=== PATIENT | male | born 1950 | race Caucasian/White ===

== ENCOUNTER 2019-07-06 05:56 | Day surgery (SDC) | payer BC, MEDICARE ==
[2019-07-03 10:44] VITALS: BMI 24.3
[2019-07-06] MEDS ORDERED: CEFAZOLIN 2 GM in Premix Bag 1 BAG IVPB SCH (06:00)
[2019-07-06] MEDS ORDERED: mitoMYcin 40 MG in Sodium Chloride 0.9% 40 ML I-VESIC SCH (06:00)
[2019-07-06 06:40] LABS: #Basophils 0.1 thou/uL (0.0-0.2); #Eosinphils 0.5 thou/uL (0.0-0.7); #Lymphocytes 2.1 thou/uL (1.20-3.40); #Monocytes 0.9 thou/uL (0.11-0.59); #Neutrophils 3.9 thou/uL (1.40-6.50); %Basophils 0.7 % (0.0-1.0); %Eosinophils 6.1 % (0.0-10.0); %Lymphocytes 28.4 % (21.0-51.0); %Monocytes 12.7 % (0.0-10.0); %Neutrophils 52.1 % (42.0-75.0); Hemoglobin 14.9 g/dL (14.0-18.0); Mean Corpuscular HGB CONC 32.7 g/dL (32.0-36.0); Mean Platelet Volume 7.3 fL (7.4-10.4); Platelet Count 213 thou/uL (130-400); RBC Distribution Width 12.5 % (11.5-14.5); White Blood Cell (WBC) Count 7.5 thou/uL (4.8-10.8)
[2019-07-06 06:46] LABS: INR-International Normal Ratio 0.9; PTT 28.5 SEC (22.9-36.1); Prothrombin Time 12.3 SEC (12.0-14.7)
[2019-07-06] MEDS ORDERED: Fentanyl 100 MCG/2 ML VIAL ONE (06:55)
[2019-07-06] MEDS ORDERED: Midazolam HCl 2 mg/2 ml Vial ONE (06:55)
[2019-07-06 07:00] LABS: Anion Gap 11 mmol/L (10-20); BUN (Urea Nitrogen) 18 mg/dL (8.4-25.7); Calc. Creatinine Clearance 96 mL/min (70-130); Calcium 9.5 mg/dL (7.8-10.44); Carbon Dioxide 26 mmol/L (23-31); Chloride 105 mmol/L (98-107); Estimated GFR-MDRD 82; Glucose 149 mg/dL (80-115); Potassium 4.3 mmol/L (3.5-5.1); Sodium 138 mmol/L (136-145)
[2019-07-06] MEDS ORDERED: SUGAMMADEX SODIUM 500 MG/5 ML VIAL ONE (08:11)
--- NOTE | 2019-07-06 11:16 | OP ---
DATE OF PROCEDURE: 07/06/2019 PREOPERATIVE DIAGNOSIS: Bladder tumors. POSTOPERATIVE DIAGNOSIS: Bladder tumors. PROCEDURES PERFORMED: Cystoscopy, transurethral resection of bladder tumour. ANESTHESIA: General. ESTIMATED BLOOD LOSS: Less than 50 mL. DRAINS: 18-Grenadian Thomas catheter. MEDICINES USED: 40 mg of mitomycin and 40 mL saline replaced at the end of the case. FINDINGS: There are three tumors, one was about 2 to 3 cm in size, the other two adjacent to it were about 1 cm and one less than 1 cm, all next to each other in the right wall, and these were resected in group. There was an area of abnormal mucosa, papillary changes, but not tumor growing into the bladder lumen, on the right side of the bladder wall just inside of the bladder neck. None of this involved the trigone or ureteral orifices. SPECIMENS SENT: Bladder tumor, right wall, deep and superficial, and bladder tumor inside the bladder neck on the right that has its own specimen without identifying deep or superficial. DESCRIPTION OF PROCEDURE: After obtaining written and verbal consent from the patient after receiving IV antibiotics, he was taken to the operating suite. He was placed in a supine position on the treatment table. PlexiPulses were placed on his lower extremities and turned on. He was given a general anesthetic, oral intubation, placed in the dorsal lithotomy position, sterilely prepped and draped. Cystoscopy was performed with a 22-Grenadian sheath. This was well lubricated, passed under direct vision through the male urethra into the urinary bladder with aid of a 30-degree lens, video camera, and monitor. The bladder was filled and emptied as this was examined both with 30 and the 70-degree lens. We then dilated him up to 26-Grenadian and passed a 24-Grenadian resectoscope sheath with visual obturator through the male urethra into the bladder. An PredictSpring resectoscope with the Gyrus generator and Gyrus bladder loop were used. A 30-degree lens and video camera and monitor were used. We initially resected the right papillary tumor down in the smaller ones adjacent to it, down to level with the bladder wall and evacuated that out with the Ellik. We then resected the abnormal mucosa, papillary changes just inside the right bladder neck, and then Ellik'd this out, and then we took some deep bites from initial tumor on the right wall. No other abnormalities were noted. There was good hemostasis. Thomas catheter was placed. Mitomycin-C was placed. The catheter was plugged. He was taken out of the dorsal lithotomy position, awakened, extubated, and taken by stretcher to recovery room. Job ID: [id number]
[2019-07-06] MEDS ORDERED: Glycopyrrolate 0.2 MG/ML 5 ML SYRINGE ONE (11:36)
[2019-07-06] MEDS ORDERED: Lidocaine 1% PF 5 ML VIAL ONE (11:36)
[2019-07-06] MEDS ORDERED: Rocuronium Bromide 10 MG/ML (10ML VIAL) ONE (11:36)
[2019-07-06] MEDS ORDERED: PROPOFOL 200 MG/20 ML VIAL ONE (11:36)
[2019-07-06] MEDS ORDERED: PHENYLEPHRINE-NS 100 MCG/ML 10 ML SYRINGE ONE (11:36)
== END 2019-07-06 11:28 | disposition home or self-care (01) ==
LOC: SDC 05:56
PROVIDERS: ATTEND Urology
PROC: 0TBB8ZZ Excision of Bladder, Via Natural or Artificial Opening Endoscopic (ICD-10-PCS; principal; 2019-07-06)
DX: D49.4 Neoplasm of unspecified behavior of bladder (principal); I11.0 Hypertensive heart disease with heart failure; I50.9 Heart failure, unspecified; I48.91 Unspecified atrial fibrillation; E78.5 Hyperlipidemia, unspecified; Z87.891 Personal history of nicotine dependence; Z88.2 Allergy status to sulfonamides; Z95.5 Presence of coronary angioplasty implant and graft
CPT/HCPCS: 36415; 80048; 85025; 85610; 85730; 88305; 88307; 93005; 93010; J0690; J2001; J2250; J2704; J3010; J9280

== ENCOUNTER 2019-10-16 06:09 | Outpatient (CLI) | payer BC, MEDICARE, OTHER ==
[2019-10-16 11:22] LABS: PTT 31.2 sec (22.9-36.1); Prothrombin Time 13.1 sec (12.0-14.7)
[2019-10-16 11:26] LABS: #Eosinphils 0.3 thou/uL (0.0-0.7); #Lymphocytes 1.8 thou/uL (1.20-3.40); #Monocytes 0.7 thou/uL (0.11-0.59); #Neutrophils 3.7 thou/uL (1.40-6.50); %Basophils 0.4 % (0.0-1.0); %Eosinophils 4.3 % (0.0-10.0); %Lymphocytes 27.9 % (21.0-51.0); %Monocytes 10.2 % (0.0-10.0); %Neutrophils 57.2 % (42.0-75.0); Hemoglobin 14.6 g/dL (14.0-18.0); Mean Corpuscular HGB CONC 32.9 g/dL (32.0-36.0); Mean Platelet Volume 7.4 fL (7.4-10.4); Platelet Count 227 thou/uL (130-400); RBC Distribution Width 11.6 % (11.5-14.5); Red Blood Cell (RBC) Count 4.42 mill/uL (4.70-6.10); White Blood Cell (WBC) Count 6.5 thou/uL (4.8-10.8)
[2019-10-16 12:04] LABS: Anion Gap 14 mmol/L (10-20); BUN (Urea Nitrogen) 17 mg/dL (8.4-25.7); Calc. Creatinine Clearance 0 mL/min (70-130); Calcium 9.1 mg/dL (7.8-10.44); Carbon Dioxide 24 mmol/L (23-31); Chloride 107 mmol/L (98-107); Estimated GFR-MDRD 77; Glucose 158 mg/dL (80-115); Potassium 4.2 mmol/L (3.5-5.1); Sodium 141 mmol/L (136-145)
[2019-10-17 11:32] LABS: SARS-CoV-2 MS2 Positive; SARS-CoV-2 N Gene Negative; SARS-CoV-2 S Gene Negative; SARS-CoV-2 orf1ab Negative
== END 2019-10-16 06:10 | disposition home or self-care (01) ==
LOC: LABBT 06:09
PROVIDERS: ATTEND Urology
DX: Z01.812 Encounter for preprocedural laboratory examination (principal); Z11.59 Encounter for screening for other viral diseases; Z51.81 Encounter for therapeutic drug level monitoring; C67.9 Malignant neoplasm of bladder, unspecified; Z79.899 Other long term (current) drug therapy
CPT/HCPCS: 80048; 85025; 85610; 85730; 87635; U0003

== ENCOUNTER 2019-10-19 05:40 | Day surgery (SDC) | payer BC, MEDICARE ==
[2019-10-19] MEDS ORDERED: Fentanyl 100 MCG/2 ML VIAL ONE (06:23)
[2019-10-19] MEDS ORDERED: Iopamidol 50 ML FS ONE (07:05)
[2019-10-19] MEDS ORDERED: Promethazine HCl 25 MG/ML VIAL SLOW IVP PRN (07:57)
[2019-10-19] MEDS ORDERED: Ondansetron HCl/PF 4 MG/2 ML Vial IVP PRN (07:57)
--- NOTE | 2019-10-19 08:32 | RAD ---
RETROGRADE PYELOGRAM: Nine fluoroscopic images from the OR are presented. INDICATION: Intraoperative imaging during retrograde pyelogram procedure and stent placement. FINDINGS/IMPRESSION: These images demonstrate opacification of both renal collecting structures. No hydronephrosis or rangel ling defect identified. POS: AGW
[2019-10-19] MEDS ORDERED: Ondansetron PF 4 MG/2 ML Vial ONE (11:58)
[2019-10-19] MEDS ORDERED: PROPOFOL 200 MG/20 ML VIAL ONE (11:58)
[2019-10-19] MEDS ORDERED: Lidocaine 1% PF 5 ML VIAL ONE (11:58)
--- NOTE | 2019-10-19 12:45 | OP ---
DATE OF PROCEDURE: 10/19/2019 PREOPERATIVE DIAGNOSIS: History of transitional cell carcinoma of bladder, status post maintenance BCG. POSTOPERATIVE DIAGNOSIS: History of transitional cell carcinoma of bladder, status post maintenance BCG. PROCEDURES PERFORMED: Cystoscopy, bilateral retrogrades, biopsy and fulguration of bladder. ANESTHETIC: General. ESTIMATED BLOOD LOSS: Less than 50. DRAINS: None. PATH SENT: Bladder biopsies from an old tumor site and random bladder biopsies. FINDINGS: There is no evidence of recurrent bladder tumor. All bladder site appears to have healed well. Normal retrograde study. DESCRIPTION OF PROCEDURE: Obtained written and verbal consent from the patient after receiving IV Ancef, he was taken to the operating suite. He was placed in a supine position on the treatment table. PlexiPulses were placed in his lower extremities and turned on. He was given a general anesthetic and oral obturator intubation. He was placed in dorsal lithotomy position, sterilely prepped and draped. Cystoscopy was performed with a 22-Latvian sheath. This was well lubricated, passed under direct vision through the male urethra into the bladder with aid of a 30-degree lens and video camera and monitor. The bladder was filled and emptied a number of times and examined both the 30- and the 70-degree lens with the findings above. The fluoroscopy unit was used, and he was centered over it. On the left side, we used a 5-Latvian Pollack catheter, injected about 12 mL of contrast slowly in a retrograde manner, taking images, there were no filling defects. No obstruction. It drained well. Right side was done in a similar manner. The right ureteral orifice was slightly smaller, so we used a cone-tipped catheter, used the same technique, and the findings are the same. We then used a little cold cup biopsy forceps to do some random bladder biopsies and biopsies of old tumor site, and we used a Bugbee electrode to cauterize these. There was good hemostasis. The bladder was drained. The instruments were removed. The catheter was not placed. He was taken out of the dorsal lithotomy position, awakened, extubated, and taken by jayant to recovery room. Job ID: [id number]
--- NOTE | 2019-10-22 07:45 | EKG ---
Test Reason : PREOP Blood Pressure : / mmHG Vent. 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 Dereje PAYAN ([id number]) on 10/22/2019 7:44:36 AM Referred By: NEENA Confirmed By:DR. Dereje PAYAN
== END 2019-10-19 10:43 | disposition home or self-care (01) ==
LOC: SDC 05:40
PROVIDERS: ATTEND Urology
PROC: 0TBB8ZX Excision of Bladder, Via Natural or Artificial Opening Endoscopic, Diagnostic (ICD-10-PCS; principal; 2019-10-19)
DX: C67.9 Malignant neoplasm of bladder, unspecified (principal); Z88.2 Allergy status to sulfonamides
CPT/HCPCS: 74420; 88305; 93005; 93010; J0690; J2001; J2405; J2704; J3010; Q9967

== ENCOUNTER 2022-07-24 15:43 | Inpatient (IN) | payer BC, MEDICARE ==
[2022-07-24] MEDS ORDERED: HYDROcodone/Acetaminophen 5/325 mg Tablet PO PRN (21:12)
[2022-07-24] MEDS ORDERED: Ondansetron PF 4 MG/2 ML Vial IVP PRN (21:12)
[2022-07-24] MEDS ORDERED: Ondansetron ODT 4 MG TAB PO PRN (21:12)
[2022-07-24] MEDS ORDERED: Dextrose 50% Abboject 50 ML SYRINGE SLOW IVP PRN (21:29)
[2022-07-24] MEDS ORDERED: HumaLOG 300 UNITS/3 ML VIAL SC PRN (21:29)
[2022-07-24] MEDS ORDERED: Dextrose 5% in Water 1,000 ML IV PRN (21:29)
[2022-07-24] MEDS ORDERED: Guaifenesin DM 100-10/5 ML UDCUP PO PRN (21:45)
[2022-07-24] MEDS ORDERED: Apixaban 5 MG TAB PO SCH (22:15)
[2022-07-24] MEDS ORDERED: Acetaminophen 500 MG TAB PO SCH (22:15)
[2022-07-24] MEDS ORDERED: Dextrose 5%-Lactated Ringers 1,000 ML IV SCH (22:30)
[2022-07-24] MEDS: cefTRIAXone\\ROCEPHIN 2 GM in Sodium Chloride 0.9% 100 ML IVPB SCH (23:15)
[2022-07-25 05:23] LABS: Hemoglobin 11.9 g/dL (14.0-18.0); Mean Corpuscular HGB CONC 31.1 g/dL (32.0-36.0); Mean Corpuscular Hemoglobin 31.1 pg (27.0-31.0); Mean Platelet Volume 7.3 fL (7.4-10.4); Platelet Count 322 10x3/uL (130-400); RBC Distribution Width 11.8 % (11.5-14.5); Red Blood Cell (RBC) Count 3.81 mill/uL (4.70-6.10); White Blood Cell (WBC) Count 33.7 10x3/uL (4.8-10.8)
[2022-07-25 05:25] LABS: Anion Gap 13 mmol/L (10-20); BUN (Urea Nitrogen) 22 mg/dL (8.4-25.7); Calc. Creatinine Clearance 82 mL/min (70-130); Calcium 8.9 mg/dL (7.8-10.44); Carbon Dioxide 25 mmol/L (23-31); Chloride 98 mmol/L (98-107); Estimated GFR 85; Glucose 180 mg/dL (83-110); Potassium 4.1 mmol/L (3.5-5.1); Sodium 132 mmol/L (136-145)
[2022-07-25] MEDS ORDERED: Lactated Ringer's 1,000 ML IV SCH (06:15)
[2022-07-25 06:29] LABS: Band 8 % (5-11); Lymphocytes 4 % (21-51); MDiff Complete? YES; Macrocytosis SLIGHT = 6-15 cells (100X) (0-5/hpf); Monocytes 4 % (0-10); Neutrophil 83 % (42-75); Platelet Morphology Comment Appears Adequate; Polychromasia SLIGHT = 2-3 cells (100X) (0-2/hpf); Reactive Lymphocytes 1 % (0-10)
[2022-07-25] MEDS: Azithromycin 500 MG in Sodium Chloride 0.9% 250 ML 250 ML IVPB SCH (06:30)
[2022-07-25] MEDS: Lactated Ringer's 1,000 ML IV SCH ×3 (11:46→17:53)
[2022-07-25] MEDS ORDERED: Bupivacaine HCl 0.5%/Epinephrine 1:200,000/PF 30 ml Vial ONE (12:04)
[2022-07-25] MEDS ORDERED: Lidocaine 1% PF 5 ML VIAL ONE ×2 (12:26→13:46)
[2022-07-25] MEDS ORDERED: fentaNYL 50 mcg/mL 1 mL Vial ONE ×2 (12:52)
[2022-07-25] MEDS ORDERED: metroNIDAZOLE 500 MG/100 ML BAG ONE (13:32)
[2022-07-25] MEDS ORDERED: ePHEDrine Sulfate 50 MG/10 ML VIAL ONE (13:46)
[2022-07-25] MEDS ORDERED: Succinylcholine Chloride 100 MG/5 ML SYRINGE FS ONE (13:46)
[2022-07-25] MEDS ORDERED: Dexamethasone 20 MG/5 ML VIAL ONE (13:46)
[2022-07-25] MEDS ORDERED: Rocuronium Bromide 10 MG/ML (10ML VIAL) ONE (13:46)
[2022-07-25] MEDS ORDERED: Ondansetron PF 4 MG/2 ML Vial ONE (13:46)
[2022-07-25] MEDS: metroNIDAZOLE 500 MG in Premix Bag 1 BAG IVPB SCH ×2 (16:22→22:04)
[2022-07-25] MEDS ORDERED: Propofol 1,000 MG/100 ML VIAL IV ONE (16:47)
[2022-07-25 16:56] LABS: Actual Bicarbonate (HCO3a) 24.7 mEq/L (22-28); Base Excess (BEa) -2.6 mEq/L (-2.0 to +3.0); CO2 Tension 53.7 mmHg (35.0-45.0); Calcium, Ionized (arterial) 1.14 mmol/L (1.12-1.30); Carboxyhemoglobin (COHb) 0.6 gm% (0.0-3.0); Hemoglobin (Hb) 12.8 g/dL (14.0-18.0); O2 Tension (PaO2), arterial 83.8 mmHg (> 70.0); pH, Arterial 7.28 (7.35-7.45)
[2022-07-25 16:57] LABS: ALV-art Gradient 205.575 mmHg (0-20); Puncture Site Arterial Line
[2022-07-25] MEDS ORDERED: Ipratropium/Albuterol 3 ML NEB NEB PRN (17:38)
[2022-07-25] MEDS ORDERED: Phenylephrine 40 MG in Sodium Chloride 0.9% 250 ML 250 ML IVPB PRN (17:38)
[2022-07-25] MEDS ORDERED: fentaNYL 50 mcg/mL 1 mL Vial SLOW IVP PRN ×2 (17:50→17:51)
[2022-07-25] MEDS ORDERED: Propofol 1,000 MG/100 ML VIAL IV PRN (19:00)
[2022-07-25] MEDS ORDERED: Morphine 2 MG/ML VIAL SLOW IVP PRN (19:00)
[2022-07-25] MEDS ORDERED: Fentanyl BOLUS 250 ML IVPB PRN (19:00)
[2022-07-25] MEDS ORDERED: Propofol BOLUS 1,000 MG/100 ML VIAL IV PRN (19:00)
[2022-07-25] MEDS ORDERED: Fentanyl CADD 100 ML IV SCH (19:00)
[2022-07-25] MEDS ORDERED: Lorazepam 2 MG/ML VIAL SLOW IVP PRN (19:00)
[2022-07-25] MEDS ORDERED: DISCONTINUE PREVIOUS NARCOTIC PAIN MEDICATIONS AND BENZODIAZEPINES FS SCH (19:00)
[2022-07-25] MEDS ORDERED: Fentanyl CADD 100 ML ONE (19:25)
[2022-07-25] MEDS ORDERED: Electrolyte Replacement Protocol 1 EACH FS SCH (19:30)
[2022-07-25] MEDS: Carvedilol 6.25 MG TAB PO SCH (20:29)
[2022-07-25] MEDS: Rosuvastatin 10 MG TAB PO SCH (20:29)
[2022-07-25] MEDS ORDERED: Phenylephrine 40 MG/NS 250 ML 40 MG in Premix Bag 1 BAG IVPB PRN (20:30)
[2022-07-25] MEDS: Sotalol HCl 80 MG TAB PO SCH (20:34)
[2022-07-25 21:13] LABS: Bacteria/HPF None Seen HPF (None Seen); Bilirubin Negative (Negative); Blood, Urine Trace (Negative); CAUTI Indications for Culture Fever or rigors; Clarity Turbid (Clear); Glucose, Urine (Dipstick) Normal (Negative); Ketone, Urine 10 mg/dL (Negative); Leukocyte Negative Leu/uL (Negative); Nitrite Negative (Negative); Protein, Urine (Dipstick) 50 mg/dL (Neg-Trace); Specific Gravity, Urine 1.032 (1.002-1.036); Squamous Epithelial 0-3 HPF (0-3); Urobilinogen Normal mg/dL (Less than 2); WBC/HPF 0-3 HPF (0-3)
[2022-07-25 21:14] LABS: Urine Culture Reflex No No
[2022-07-25] MEDS: cefTRIAXone\\ROCEPHIN 2 GM in Sodium Chloride 0.9% 100 ML IVPB SCH (22:04)
[2022-07-25] MEDS: HumaLOG 300 UNITS/3 ML VIAL SC PRN (23:42)
[2022-07-26 04:37] LABS: Hemoglobin 11.1 g/dL (14.0-18.0); Mean Corpuscular HGB CONC 31.6 g/dL (32.0-36.0); Mean Corpuscular Hemoglobin 31.3 pg (27.0-31.0); Mean Corpuscular Volume 99.2 fl (78.0-98.0); Mean Platelet Volume 6.9 fL (7.4-10.4); Platelet Count 353 10x3/uL (130-400); RBC Distribution Width 11.9 % (11.5-14.5); Red Blood Cell (RBC) Count 3.55 mill/uL (4.70-6.10); White Blood Cell (WBC) Count 30.7 10x3/uL (4.8-10.8)
[2022-07-26 04:57] LABS: Anion Gap 12 mmol/L (10-20); BUN (Urea Nitrogen) 18 mg/dL (8.4-25.7); Calc. Creatinine Clearance 127 mL/min (70-130); Calcium 8.3 mg/dL (7.8-10.44); Carbon Dioxide 23 mmol/L (23-31); Chloride 103 mmol/L (98-107); Estimated GFR 102; Glucose 158 mg/dL (83-110); Magnesium 1.8 mg/dL (1.6-2.6); Potassium 3.7 mmol/L (3.5-5.1); Sodium 134 mmol/L (136-145)
[2022-07-26] MEDS: Azithromycin 500 MG in Sodium Chloride 0.9% 250 ML 250 ML IVPB SCH (05:03)
[2022-07-26] MEDS: metroNIDAZOLE 500 MG in Premix Bag 1 BAG IVPB SCH ×3 (05:04→21:02)
[2022-07-26] MEDS: Lactated Ringer's 1,000 ML IV SCH (05:06)
[2022-07-26 05:22] LABS: Band 8 % (5-11); Lymphocytes 3 % (21-51); MDiff Complete? YES; Monocytes 1 % (0-10); Neutrophil 88 % (42-75)
[2022-07-26] MEDS ORDERED: Magnesium 2 GM/50 ML(in water) 2 GM in Premix Bag 1 BAG IVPB SCH (06:45)
[2022-07-26] MEDS: HumaLOG 300 UNITS/3 ML VIAL SC PRN ×2 (06:54→13:07)
[2022-07-26] MEDS ORDERED: FLU VACC QS2022-23(65YR UP)/PF 240 MCG/0.7 ML SYRINGE IM ONE (09:00)
[2022-07-26] MEDS: Sotalol HCl 80 MG TAB PO SCH ×2 (10:08→21:01)
[2022-07-26] MEDS: Polyethylene Glycol 3350 17 GM Packet PO SCH (10:09)
[2022-07-26] MEDS: Carvedilol 6.25 MG TAB PO SCH (10:10)
[2022-07-26] MEDS ORDERED: fentaNYL 50 mcg/mL 1 mL Vial SLOW IVP PRN (19:51)
[2022-07-26] MEDS ORDERED: Non-Formulary Item 1 EACH (Cinnamon Bark [Cinnamon] 500 MG Capsule) PO SCH (21:00)
[2022-07-26] MEDS: Rosuvastatin 10 MG TAB PO SCH (21:01)
[2022-07-26] MEDS: Alogliptin 6.25 MG TAB PO SCH (21:02)
[2022-07-26] MEDS: metFORMIN 500 MG TAB PO SCH (21:02)
[2022-07-26] MEDS: cefTRIAXone\\ROCEPHIN 2 GM in Sodium Chloride 0.9% 100 ML IVPB SCH (21:03)
[2022-07-27 04:12] LABS: Anion Gap 11 mmol/L (10-20); BUN (Urea Nitrogen) 21 mg/dL (8.4-25.7); CRP (Inflammatory) 22.01 mg/dL (= or < 0.5); Calc. Creatinine Clearance 116 mL/min (70-130); Calcium 8.3 mg/dL (7.8-10.44); Carbon Dioxide 28 mmol/L (23-31); Chloride 101 mmol/L (98-107); Estimated GFR 99; Glucose 137 mg/dL (83-110); Potassium 3.9 mmol/L (3.5-5.1); Sodium 136 mmol/L (136-145)
[2022-07-27 04:22] LABS: Band 3 % (5-11); Hemoglobin 11.4 g/dL (14.0-18.0); Hypochromia SLIGHT = 6-15 cells (100X) (0-5/hpf); Lymphocytes 4 % (21-51); MDiff Complete? YES; Macrocytosis SLIGHT = 6-15 cells (100X) (0-5/hpf); Mean Corpuscular HGB CONC 31.8 g/dL (32.0-36.0); Mean Corpuscular Hemoglobin 31.5 pg (27.0-31.0); Mean Corpuscular Volume 99.1 fl (78.0-98.0); Mean Platelet Volume 6.7 fL (7.4-10.4); Monocytes 4 % (0-10); Neutrophil 89 % (42-75); Platelet Count 392 10x3/uL (130-400); Platelet Morphology Comment Appears Adequate; Polychromasia SLIGHT = 2-3 cells (100X) (0-2/hpf); Red Blood Cell (RBC) Count 3.62 mill/uL (4.70-6.10); Vacuoles SLIGHT; White Blood Cell (WBC) Count 26.9 10x3/uL (4.8-10.8)
[2022-07-27] MEDS: metroNIDAZOLE 500 MG in Premix Bag 1 BAG IVPB SCH ×3 (05:42→22:08)
[2022-07-27] MEDS: Azithromycin 500 MG in Sodium Chloride 0.9% 250 ML 250 ML IVPB SCH (05:43)
[2022-07-27] MEDS: Carvedilol 6.25 MG TAB PO SCH ×2 (09:00→17:19)
[2022-07-27] MEDS: Multivit, Therapeutic 1 TAB PO SCH (09:00)
[2022-07-27] MEDS: metFORMIN 500 MG TAB PO SCH ×2 (09:01→20:08)
[2022-07-27] MEDS: Spironolactone 25 MG TAB PO SCH (09:01)
[2022-07-27] MEDS: Polyethylene Glycol 3350 17 GM Packet PO SCH (09:01)
[2022-07-27] MEDS: Cholecalciferol 1,000 UNITS (25 MCG) TAB PO SCH (09:07)
[2022-07-27] MEDS: Sotalol HCl 80 MG TAB PO SCH ×2 (09:07→20:07)
[2022-07-27] MEDS: Acetaminophen 325 MG TAB PO PRN ×2 (09:23→22:08)
[2022-07-27] MEDS: Alogliptin 6.25 MG TAB PO SCH ×2 (09:29→20:08)
[2022-07-27] MEDS: HumaLOG 300 UNITS/3 ML VIAL SC PRN (11:04)
[2022-07-27] MEDS: traMADol HCl 50 MG TAB PO PRN ×2 (14:43→19:43)
[2022-07-27] MEDS: Rosuvastatin 10 MG TAB PO SCH (20:08)
[2022-07-27] MEDS: cefTRIAXone\\ROCEPHIN 2 GM in Sodium Chloride 0.9% 100 ML IVPB SCH (22:09)
[2022-07-28] MEDS: metroNIDAZOLE 500 MG in Premix Bag 1 BAG IVPB SCH ×3 (05:29→22:47)
[2022-07-28] MEDS: Azithromycin 500 MG in Sodium Chloride 0.9% 250 ML 250 ML IVPB SCH (05:29)
[2022-07-28 05:37] LABS: Anion Gap 12 mmol/L (10-20); BUN (Urea Nitrogen) 17 mg/dL (8.4-25.7); Calc. Creatinine Clearance 127 mL/min (70-130); Calcium 8.2 mg/dL (7.8-10.44); Carbon Dioxide 24 mmol/L (23-31); Chloride 103 mmol/L (98-107); Estimated GFR 102; Glucose 131 mg/dL (83-110); Potassium 4.1 mmol/L (3.5-5.1); Sodium 135 mmol/L (136-145)
[2022-07-28] MEDS: traMADol HCl 50 MG TAB PO PRN ×2 (05:47→20:00)
[2022-07-28 06:06] LABS: Band 4 % (5-11); Lymphocytes 6 % (21-51); MDiff Complete? YES; Mean Corpuscular HGB CONC 32.7 g/dL (32.0-36.0); Mean Corpuscular Volume 97.8 fl (78.0-98.0); Mean Platelet Volume 6.7 fL (7.4-10.4); Monocytes 4 % (0-10); Neutrophil 86 % (42-75); Platelet Count 431 10x3/uL (130-400); Platelet Morphology Comment Appears Increased; RBC Morphology Normal; Red Blood Cell (RBC) Count 3.77 mill/uL (4.70-6.10); White Blood Cell (WBC) Count 22.6 10x3/uL (4.8-10.8)
[2022-07-28] MEDS: Alogliptin 6.25 MG TAB PO SCH ×2 (09:21→20:00)
[2022-07-28] MEDS: Cholecalciferol 1,000 UNITS (25 MCG) TAB PO SCH (09:21)
[2022-07-28] MEDS: Sotalol HCl 80 MG TAB PO SCH ×2 (09:22→20:00)
[2022-07-28] MEDS: Multivit, Therapeutic 1 TAB PO SCH (09:22)
[2022-07-28] MEDS: Spironolactone 25 MG TAB PO SCH (09:22)
[2022-07-28] MEDS: Carvedilol 6.25 MG TAB PO SCH ×2 (09:22→17:16)
[2022-07-28] MEDS: metFORMIN 500 MG TAB PO SCH ×2 (09:22→20:00)
[2022-07-28] MEDS: Polyethylene Glycol 3350 17 GM Packet PO SCH (09:23)
[2022-07-28] MEDS: Rosuvastatin 10 MG TAB PO SCH (20:01)
[2022-07-28] MEDS: cefTRIAXone\\ROCEPHIN 2 GM in Sodium Chloride 0.9% 100 ML IVPB SCH (22:47)
[2022-07-29] MEDS: Azithromycin 500 MG in Sodium Chloride 0.9% 250 ML 250 ML IVPB SCH (05:56)
[2022-07-29] MEDS: metroNIDAZOLE 500 MG in Premix Bag 1 BAG IVPB SCH ×3 (05:56→21:23)
[2022-07-29 07:33] LABS: Hemoglobin 12.7 g/dL (14.0-18.0); Mean Corpuscular HGB CONC 33.3 g/dL (32.0-36.0); Mean Corpuscular Hemoglobin 32.5 pg (27.0-31.0); Mean Corpuscular Volume 97.8 fl (78.0-98.0); Mean Platelet Volume 6.4 fL (7.4-10.4); Platelet Count 528 10x3/uL (130-400); RBC Distribution Width 12.2 % (11.5-14.5); White Blood Cell (WBC) Count 25.2 10x3/uL (4.8-10.8)
[2022-07-29 07:48] LABS: Anion Gap 13 mmol/L (10-20); BUN (Urea Nitrogen) 14 mg/dL (8.4-25.7); Calc. Creatinine Clearance 125 mL/min (70-130); Calcium 8.2 mg/dL (7.8-10.44); Carbon Dioxide 21 mmol/L (23-31); Chloride 104 mmol/L (98-107); Estimated GFR 101; Glucose 153 mg/dL (83-110); Potassium 3.7 mmol/L (3.5-5.1); Sodium 134 mmol/L (136-145)
[2022-07-29] MEDS: Multivit, Therapeutic 1 TAB PO SCH (08:42)
[2022-07-29] MEDS: Sotalol HCl 80 MG TAB PO SCH ×2 (08:42→21:18)
[2022-07-29] MEDS: Polyethylene Glycol 3350 17 GM Packet PO SCH (08:42)
[2022-07-29] MEDS: Alogliptin 6.25 MG TAB PO SCH ×2 (08:43→21:17)
[2022-07-29] MEDS: Cholecalciferol 1,000 UNITS (25 MCG) TAB PO SCH (08:44)
[2022-07-29] MEDS: Carvedilol 6.25 MG TAB PO SCH ×2 (08:44→16:20)
[2022-07-29] MEDS: metFORMIN 500 MG TAB PO SCH ×2 (08:44→21:18)
[2022-07-29] MEDS: Acetaminophen 325 MG TAB PO PRN (08:46)
[2022-07-29 10:52] LABS: Lymphocytes 7 % (21-51); MDiff Complete? YES; Monocytes 12 % (0-10); Neutrophil 81 % (42-75); Platelet Morphology Comment Appears Increased
[2022-07-29] MEDS: Rosuvastatin 10 MG TAB PO SCH (21:18)
[2022-07-29] MEDS: cefTRIAXone\\ROCEPHIN 2 GM in Sodium Chloride 0.9% 100 ML IVPB SCH (21:23)
[2022-07-30 05:24] LABS: Anion Gap 13 mmol/L (10-20); BUN (Urea Nitrogen) 13 mg/dL (8.4-25.7); Calc. Creatinine Clearance 127 mL/min (70-130); Calcium 8.1 mg/dL (7.8-10.44); Carbon Dioxide 22 mmol/L (23-31); Chloride 103 mmol/L (98-107); Estimated GFR 102; Glucose 150 mg/dL (83-110); Potassium 3.6 mmol/L (3.5-5.1); Sodium 134 mmol/L (136-145)
[2022-07-30] MEDS: Azithromycin 500 MG in Sodium Chloride 0.9% 250 ML 250 ML IVPB SCH (05:28)
[2022-07-30] MEDS: metroNIDAZOLE 500 MG in Premix Bag 1 BAG IVPB SCH (05:29)
[2022-07-30 06:00] LABS: Hemoglobin 11.6 g/dL (14.0-18.0); Hypochromia SLIGHT = 6-15 cells (100X) (0-5/hpf); Lymphocytes 5 % (21-51); MDiff Complete? YES; Mean Corpuscular HGB CONC 31.1 g/dL (32.0-36.0); Mean Corpuscular Hemoglobin 30.5 pg (27.0-31.0); Mean Corpuscular Volume 97.9 fl (78.0-98.0); Mean Platelet Volume 6.5 fL (7.4-10.4); Metamyelocyte 1 % (0-0); Monocytes 11 % (0-10); Neutrophil 83 % (42-75); Platelet Count 630 10x3/uL (130-400); Platelet Morphology Comment Appears Increased; RBC Distribution Width 12.3 % (11.5-14.5); Red Blood Cell (RBC) Count 3.83 mill/uL (4.70-6.10); White Blood Cell (WBC) Count 22.9 10x3/uL (4.8-10.8)
[2022-07-30] MEDS: metFORMIN 500 MG TAB PO SCH ×2 (07:58→20:18)
[2022-07-30] MEDS: Acetaminophen 325 MG TAB PO PRN (08:00)
[2022-07-30] MEDS: Alogliptin 6.25 MG TAB PO SCH ×2 (08:01→20:28)
[2022-07-30] MEDS: Sotalol HCl 80 MG TAB PO SCH ×2 (08:01→20:18)
[2022-07-30] MEDS: Carvedilol 6.25 MG TAB PO SCH ×2 (08:02→17:48)
[2022-07-30] MEDS: Cholecalciferol 1,000 UNITS (25 MCG) TAB PO SCH (08:02)
[2022-07-30] MEDS: Multivit, Therapeutic 1 TAB PO SCH (08:02)
[2022-07-30] MEDS: Polyethylene Glycol 3350 17 GM Packet PO SCH (08:04)
[2022-07-30] MEDS: Cefdinir 300 MG CAP PO SCH ×2 (09:50→20:18)
[2022-07-30] MEDS ORDERED: metroNIDAZOLE 500 MG TAB PO SCH (15:00)
[2022-07-30] MEDS: Rosuvastatin 10 MG TAB PO SCH (20:18)
[2022-07-31] MEDS: Acetaminophen 325 MG TAB PO PRN ×2 (01:35→21:51)
[2022-07-31 05:01] LABS: Anion Gap 10 mmol/L (10-20); BUN (Urea Nitrogen) 10 mg/dL (8.4-25.7); Calc. Creatinine Clearance 134 mL/min (70-130); Calcium 8.1 mg/dL (7.8-10.44); Carbon Dioxide 26 mmol/L (23-31); Chloride 105 mmol/L (98-107); Estimated GFR 102; Glucose 150 mg/dL (83-110); Potassium 3.4 mmol/L (3.5-5.1); Sodium 138 mmol/L (136-145)
[2022-07-31 05:27] LABS: Eosinophils 1 % (0-10); Hemoglobin 11.3 g/dL (14.0-18.0); Hypochromia SLIGHT = 6-15 cells (100X) (0-5/hpf); Lymphocytes 6 % (21-51); MDiff Complete? YES; Mean Corpuscular HGB CONC 32.5 g/dL (32.0-36.0); Mean Corpuscular Hemoglobin 31.8 pg (27.0-31.0); Mean Corpuscular Volume 97.6 fl (78.0-98.0); Mean Platelet Volume 6.4 fL (7.4-10.4); Monocytes 4 % (0-10); Neutrophil 87 % (42-75); Platelet Count 616 10x3/uL (130-400); Platelet Morphology Comment Appears Increased; RBC Distribution Width 12.6 % (11.5-14.5); Reactive Lymphocytes 2 % (0-10); Red Blood Cell (RBC) Count 3.57 mill/uL (4.70-6.10)
[2022-07-31] MEDS ORDERED: Potassium Chloride 20 MEQ TAB PO SCH (08:00)
[2022-07-31] MEDS: Alogliptin 6.25 MG TAB PO SCH ×2 (08:17→22:07)
[2022-07-31] MEDS: Cholecalciferol 1,000 UNITS (25 MCG) TAB PO SCH (08:18)
[2022-07-31] MEDS: Cefdinir 300 MG CAP PO SCH ×2 (08:18→21:49)
[2022-07-31] MEDS: Multivit, Therapeutic 1 TAB PO SCH (08:18)
[2022-07-31] MEDS: Carvedilol 6.25 MG TAB PO SCH ×2 (08:18→16:17)
[2022-07-31] MEDS: metFORMIN 500 MG TAB PO SCH ×2 (08:18→21:50)
[2022-07-31] MEDS: Sotalol HCl 80 MG TAB PO SCH ×2 (08:18→21:50)
[2022-07-31] MEDS: Polyethylene Glycol 3350 17 GM Packet PO SCH (08:19)
[2022-07-31] MEDS: Non-Formulary Item 1 EACH (Omega-3 Acid Ethyl Esters [Lovaza] 1 GM Capsule) PO SCH ×3 (15:21→15:25)
[2022-07-31] MEDS: Rosuvastatin 10 MG TAB PO SCH (21:50)
[2022-08-01 04:56] LABS: #Eosinphils 0.5 thou/uL (0.0-0.7); #Lymphocytes 1.8 thou/uL (1.20-3.40); #Neutrophils 13.8 thou/uL (1.40-6.50); %Eosinophils 2.8 % (0.0-10.0); %Lymphocytes 10.1 % (21.0-51.0); %Neutrophils 76.2 % (42.0-75.0); Hemoglobin 11.8 g/dL (14.0-18.0); Mean Corpuscular HGB CONC 30.9 g/dL (32.0-36.0); Mean Corpuscular Hemoglobin 30.2 pg (27.0-31.0); Mean Corpuscular Volume 97.7 fl (78.0-98.0); Mean Platelet Volume 6.2 fL (7.4-10.4); Platelet Count 703 10x3/uL (130-400); RBC Distribution Width 12.5 % (11.5-14.5); Red Blood Cell (RBC) Count 3.92 mill/uL (4.70-6.10); White Blood Cell (WBC) Count 18.2 10x3/uL (4.8-10.8)
[2022-08-01 05:18] LABS: Anion Gap 13 mmol/L (10-20); BUN (Urea Nitrogen) 9 mg/dL (8.4-25.7); Calc. Creatinine Clearance 130 mL/min (70-130); Calcium 8.2 mg/dL (7.8-10.44); Carbon Dioxide 22 mmol/L (23-31); Chloride 105 mmol/L (98-107); Estimated GFR 101; Glucose 159 mg/dL (83-110); Potassium 3.8 mmol/L (3.5-5.1); Sodium 136 mmol/L (136-145)
[2022-08-01 07:10] LABS: Magnesium 1.7 mg/dL (1.6-2.6)
[2022-08-01 07:40] LABS: Troponin I Less than 0.010 ng/mL (< 0.028)
[2022-08-01] MEDS ORDERED: Magnesium 2 GM/50 ML(in water) 2 GM in Premix Bag 1 BAG IVPB SCH (08:00)
[2022-08-01] MEDS: Polyethylene Glycol 3350 17 GM Packet PO SCH (09:03)
[2022-08-01] MEDS: Multivit, Therapeutic 1 TAB PO SCH (09:03)
[2022-08-01] MEDS: Carvedilol 6.25 MG TAB PO SCH ×2 (09:03→16:15)
[2022-08-01] MEDS: Cefdinir 300 MG CAP PO SCH ×2 (09:03→22:07)
[2022-08-01] MEDS: metFORMIN 500 MG TAB PO SCH ×2 (09:03→22:07)
[2022-08-01] MEDS: Cholecalciferol 1,000 UNITS (25 MCG) TAB PO SCH (09:04)
[2022-08-01] MEDS: Sotalol HCl 80 MG TAB PO SCH ×2 (09:04→22:08)
[2022-08-01] MEDS: Alogliptin 6.25 MG TAB PO SCH ×2 (11:35→22:07)
[2022-08-01] MEDS ORDERED: Amiodarone 200 MG TAB PO SCH (21:00)
[2022-08-01] MEDS: Rosuvastatin 10 MG TAB PO SCH (22:09)
[2022-08-02 05:52] VITALS: BMI 23.3
[2022-08-02 08:26] LABS: #Eosinphils 0.2 thou/uL (0.0-0.7); #Lymphocytes 1.7 thou/uL (1.20-3.40); #Monocytes 1.8 thou/uL (0.11-0.59); #Neutrophils 14.9 thou/uL (1.40-6.50); %Basophils 0.1 % (0.0-1.0); %Eosinophils 0.9 % (0.0-10.0); %Monocytes 9.7 % (0.0-10.0); %Neutrophils 80.4 % (42.0-75.0); Hemoglobin 11.9 g/dL (14.0-18.0); Mean Corpuscular HGB CONC 33.1 g/dL (32.0-36.0); Mean Corpuscular Volume 96.9 fl (78.0-98.0); Mean Platelet Volume 6.2 fL (7.4-10.4); Platelet Count 675 10x3/uL (130-400); RBC Distribution Width 12.7 % (11.5-14.5); White Blood Cell (WBC) Count 18.5 10x3/uL (4.8-10.8)
[2022-08-02 08:45] LABS: Anion Gap 10 mmol/L (10-20); BUN (Urea Nitrogen) 9 mg/dL (8.4-25.7); Calc. Creatinine Clearance 123 mL/min (70-130); Calcium 8.2 mg/dL (7.8-10.44); Carbon Dioxide 25 mmol/L (23-31); Chloride 104 mmol/L (98-107); Estimated GFR 100; Glucose 172 mg/dL (83-110); Potassium 3.8 mmol/L (3.5-5.1); Sodium 135 mmol/L (136-145)
[2022-08-02] MEDS: metFORMIN 500 MG TAB PO SCH (09:49)
[2022-08-02] MEDS: Cholecalciferol 1,000 UNITS (25 MCG) TAB PO SCH (09:49)
[2022-08-02] MEDS: Sotalol HCl 80 MG TAB PO SCH (09:49)
[2022-08-02] MEDS: Carvedilol 6.25 MG TAB PO SCH (09:50)
[2022-08-02] MEDS: Cefdinir 300 MG CAP PO SCH (09:50)
[2022-08-02] MEDS: Multivit, Therapeutic 1 TAB PO SCH (09:50)
[2022-08-02] MEDS: Alogliptin 6.25 MG TAB PO SCH (09:50)
[2022-08-02] MEDS: Polyethylene Glycol 3350 17 GM Packet PO SCH (09:51)
[2022-08-02 15:52] VITALS: BP 113/62; TEMP 98.5
== END 2022-08-02 16:00 | disposition home or self-care (01) | DRG 853 ==
LOC: 2NO 15:43 → CCU 07-25 16:20 → 2NO 07-27 19:24
PROVIDERS: ADMIT Internal Medicine; ATTEND Internal Medicine
PROC: 3E03329 Introduction of Other Anti-infective into Peripheral Vein, Percutaneous Approach (ICD-10-PCS; 2022-07-24)
PROC: 0BN Respiratory System, Release (ICD-10-PCS; principal; 2022-07-25)
DX: A41.9 Sepsis, unspecified organism (principal); J18.9 Pneumonia, unspecified organism; J96.01 Acute respiratory failure with hypoxia; J86.9 Pyothorax without fistula; I50.22 Chronic systolic (congestive) heart failure; I47.20 Ventricular tachycardia, unspecified; I48.3 Typical atrial flutter; I11.0 Hypertensive heart disease with heart failure; Z20.822 Contact with and (suspected) exposure to COVID-19; I48.0 Paroxysmal atrial fibrillation; E11.9 Type 2 diabetes mellitus without complications; R65.20 Severe sepsis without septic shock; E78.5 Hyperlipidemia, unspecified; D69.6 Thrombocytopenia, unspecified; I25.5 Ischemic cardiomyopathy; Z88.2 Allergy status to sulfonamides; Z79.899 Other long term (current) drug therapy; I25.2 Old myocardial infarction; Z95.810 Presence of automatic (implantable) cardiac defibrillator; Z87.891 Personal history of nicotine dependence; Z79.84 Long term (current) use of oral hypoglycemic drugs; Z79.01 Long term (current) use of anticoagulants; Z79.82 Long term (current) use of aspirin
CPT/HCPCS: 36415; 36416; 71045; 80048; 81001; 82805; 83735; 84484; 85025; 86140; 86850; 86900; 86901; 87070; 87205; 93005; 93010; 93306; 94002; 94003; J0456; J0696; J1100; J1642; J1650; J1815; J2405; J2704; J3010; J3475; J3490; J7050; J7120; U0003; U0005

== ENCOUNTER 2022-08-13 12:16 | Outpatient (CLI) | payer BC, MEDICARE | END 2022-08-13 12:17 | disposition home or self-care (01) | LOC: BICRAD 12:16 | PROVIDERS: ATTEND Thoracic Surgery (Cardiothoracic Vascular Surgery) | DX: J86.9 Pyothorax without fistula (principal); J70.4 Drug-induced interstitial lung disorders, unspecified | CPT/HCPCS: 71046 ==

== ENCOUNTER 2023-01-03 13:08 | Outpatient (CLI) | payer BC, MEDICARE | END 2023-01-03 13:09 | disposition home or self-care (01) | LOC: RAD 13:08 | PROVIDERS: ATTEND Internal Medicine Critical Care Medicine | DX: R06.00 Dyspnea, unspecified (principal); R91.8 Other nonspecific abnormal finding of lung field | CPT/HCPCS: 71046 ==

== ENCOUNTER 2023-03-12 09:20 | Outpatient (CLI) | payer BC, MEDICARE | END 2023-03-12 09:21 | disposition home or self-care (01) | LOC: RAD 09:20 | PROVIDERS: ATTEND Internal Medicine Critical Care Medicine | DX: R06.00 Dyspnea, unspecified (principal); J98.11 Atelectasis; J90 Pleural effusion, not elsewhere classified | CPT/HCPCS: 71046 ==

== ENCOUNTER 2024-03-12 09:15 | Outpatient (CLI) | payer BC, MEDICARE | END 2024-03-12 09:16 | disposition home or self-care (01) | LOC: RAD 09:15 | PROVIDERS: ATTEND Internal Medicine Critical Care Medicine | DX: R06.00 Dyspnea, unspecified (principal) | CPT/HCPCS: 71046 ==